=== PATIENT | female | born 1990 | race African-American/Black ===

== ENCOUNTER 2016-05-25 13:45 | Emergency (ER) | payer MEDICAID | END 2016-05-25 17:58 | disposition home or self-care (01) | LOC: ER 13:45 | DX: O26.891 Other specified pregnancy related conditions, first trimester (principal); J10.1 Influenza due to other identified influenza virus with other respiratory manifestations; Z3A.01 Less than 8 weeks gestation of pregnancy | CPT/HCPCS: 36415; 71010; 80053; 81001; 83605; 84702; 84703; 85025; 87040; 87088; 87804; 87880; 96360 ==